=== PATIENT | male | born 1955 | race Native Hawaiian/Other Pacific Islander ===

== ENCOUNTER → 2021-04-21 | Outpatient (CLI) | payer SELFPAY ==
[2021-04-21 18:00] LABS: BASOPHILS ABSOLUTE AUTO 0.05 K/mm3 (0.00-0.23); BASOPHILS PERCENT AUTO 1 % (0-2); EOSINOPHILS PERCENT AUTO 2 % (0-6); Hematocrit 44.6 % (37.0-53.0); Hemoglobin 14.8 g/dL (13.5-17.5); IMMATURE GRAN ABSOLUTE AUTO 0.02 K/mm3 (0.00-0.10); IMMATURE GRAN PERCENT AUTO 0 % (0-1); LYMPHOCYTES ABSOLUTE AUTO 1.84 K/mm3 (0.84-5.20); LYMPHOCYTES PERCENT AUTO 20 % (21-46); MONOCYTES ABSOLUTE AUTO 0.73 K/mm3 (0.16-1.47); MONOCYTES PERCENT AUTO 8 % (4-13); Mean Corpuscular HGB 27.8 pg (26.0-34.0); Mean Corpuscular HGB Conc 33.2 g/dL (31.5-36.5); Mean Corpuscular Volume 84 fL (80-100); Mean Platelet Volume 11.1 fL (9.1-12.4); NEUTROPHILS ABSOLUTE AUTO 6.33 K/mm3 (1.96-9.15); NEUTROPHILS PERCENT AUTO 69 % (41-73); Platelet Count 244 K/mm3 (150-400); RDW Coefficient Variation 12.7 % (11.7-14.2); RDW Standard Deviation 38.5 fL (35.1-46.3); Red Blood Cell Count 5.32 M/mm3 (4.30-5.90); White Blood Cell Count 9.17 K/mm3 (4.00-11.30)
[2021-04-21 18:32] LABS: Free Thyroxine 1.02 ng/dL (0.70-1.60)
[2021-04-21 18:46] LABS: LDL/HDL RATIO 1.7
[2021-04-21 18:47] LABS: Alanine Aminotransfer (ALT/SGP 39 U/L (12-78); Albumin, Blood 3.9 g/dL (3.4-5.0); Albumin/Globulin Ratio 1.2 (0.8-1.8); Alk Phos 68 U/L (50-136); Anion Gap 7 mmol/L (6-16); Aspartate Aminotrans (AST/SGOT 16 U/L (12-37); Bilirubin, Total 0.7 mg/dL (0.1-1.0); Blood Urea Nitrogen 26 mg/dL (8-24); Bun/Creatinine Ratio 24.8 (12.0-20.0); CHOL/HDL RATIO 3.2; CO2, Blood 23 mmol/L (21-32); Calcium, Blood 9.8 mg/dL (8.5-10.1); Chloride, Blood 108 mmol/L (98-108); Cholesterol 158 mg/dL (50-200); Creatinine, Blood 1.05 mg/dL (0.60-1.20); Globulin, Blood 3.2 g/dL (2.2-4.0); Glomerular Filtration Rate >60 (60-); Glucose, Blood 136 mg/dL (70-99); HDL Cholesterol 50 mg/dL (>39); Low Density Lipoprotein Chol 83 mg/dL (0-110); Potassium, Blood 4.3 mmol/L (3.5-5.5); Sodium, Blood 138 mmol/L (136-145); Total Protein, Blood 7.1 g/dL (6.4-8.2); Triglycerides 123 mg/dL (30-160); Very Low Density Lipoprot Chol 24 mg/dL (6-32)
== END | disposition home or self-care (01) ==
LOC: LAB SHORT 16:32
PROVIDERS: Nurse Practitioner Family
DX: I10 Essential (primary) hypertension (principal); E78.5 Hyperlipidemia, unspecified; R73.03 Prediabetes
CPT/HCPCS: 80053; 80061; 83036; 84439; 84443; 85025

== ENCOUNTER 2021-10-23 09:16 | Day surgery (SDC) | payer MEDICARE, OTHER ==
[~2021-10-23] VITALS: Ht 180.3 cm; Wt 105.1 kg
[2021-10-23] MEDS ORDERED: METF500 (09:34)
[2021-10-23] MEDS ORDERED: OLME5TAB PO (09:35)
[2021-10-23] MEDS ORDERED: FISH OIL 1,2001 EAC7 PO (09:36)
[2021-10-23] MEDS ORDERED: ATOR40TA PO (09:36)
--- NOTE | 2021-10-23 09:45 | NUR ---
10/23/21 0945 Yessenia Crawford TETRA- 0933 [facility]- 0935
== END 2021-10-23 10:58 | disposition home or self-care (01) ==
LOC: ORSCSDS 09:16
PROVIDERS: Ophthalmology
PROC: 08RJ3JZ Replacement of Right Lens with Synthetic Substitute, Percutaneous Approach (ICD-10-PCS; principal; 2021-10-23 10:30)
DX: H25.13 Age-related nuclear cataract, bilateral (principal); I10 Essential (primary) hypertension; E11.9 Type 2 diabetes mellitus without complications; K21.9 Gastro-esophageal reflux disease without esophagitis; Z79.84 Long term (current) use of oral hypoglycemic drugs; Z79.899 Other long term (current) drug therapy
CPT/HCPCS: 82947; J2001; J2250; J3010; J3301; J7040; V2632

== ENCOUNTER → 2023-02-01 | Outpatient (CLI) | payer MEDICARE ==
[~2023-02-01] MED LIST: ATOR40TA PO; FISH OIL 1,2001 EAC7 PO; METF500; OLME5TAB PO
[2023-02-01 09:21] LABS: BASOPHILS ABSOLUTE AUTO 0.03 K/mm3 (0.00-0.23); BASOPHILS PERCENT AUTO 0 % (0-2); EOSINOPHILS ABSOLUTE AUTO 0.04 K/mm3 (0.00-0.68); EOSINOPHILS PERCENT AUTO 0 % (0-6); Hematocrit 43.3 % (37.0-53.0); Hemoglobin 14.7 g/dL (13.5-17.5); IMMATURE GRAN ABSOLUTE AUTO 0.08 K/mm3 (0.00-0.10); IMMATURE GRAN PERCENT AUTO 1 % (0-1); LYMPHOCYTES ABSOLUTE AUTO 0.87 K/mm3 (0.84-5.20); LYMPHOCYTES PERCENT AUTO 6 % (21-46); MONOCYTES ABSOLUTE AUTO 0.68 K/mm3 (0.16-1.47); MONOCYTES PERCENT AUTO 5 % (4-13); Mean Corpuscular HGB 28.6 pg (26.0-34.0); Mean Corpuscular HGB Conc 33.9 g/dL (31.5-36.5); Mean Corpuscular Volume 84 fL (80-100); Mean Platelet Volume 10.9 fL (9.1-12.4); NEUTROPHILS PERCENT AUTO 88 % (41-73); Platelet Count 217 K/mm3 (150-400); RDW Coefficient Variation 13.1 % (11.7-14.2); RDW Standard Deviation 39.7 fL (35.1-46.3); Red Blood Cell Count 5.14 M/mm3 (4.30-5.90)
[2023-02-01 09:30] LABS: Albumin/Globulin Ratio 1.3 (0.8-1.8); Bilirubin, Total 0.8 mg/dL (0.1-1.0); Bun/Creatinine Ratio 19.9 (12.0-20.0); Calcium, Blood 10.2 mg/dL (8.5-10.1); Creatinine, Blood 1.66 mg/dL (0.60-1.20); Globulin, Blood 3.2 g/dL (2.2-4.0); Potassium, Blood 4.6 mmol/L (3.5-5.5); Total Protein, Blood 7.2 g/dL (6.4-8.2); Uric Acid, Blood 8.9 mg/dL (3.5-7.2)
== END ==
LOC: LAB 09:17 → LAB SHORT 09:17
PROVIDERS: Physician Assistant Medical
DX: M25.571 Pain in right ankle and joints of right foot (principal)
CPT/HCPCS: 80053; 84550; 85025

== ENCOUNTER 2023-06-23 14:45 | Day surgery (SDC) | payer MEDICARE, OTHER ==
[~2023-06-23] VITALS: Ht 180.3 cm; Wt 105.3 kg
[~2023-06-23 14:45] MED LIST changes: +PANT40 PO
--- NOTE | 2023-06-23 15:09 | NUR ---
06/23/23 1509 Ivy Cornejo AT 1505 [facility] AT 1506
[2023-06-23 16:23] VITALS: BP 127/73
--- NOTE | 2023-06-23 16:25 | NUR ---
06/23/23 1625 Annabel Marshall IV DC'D, CATH INTACT. PT TOLERATED WELL. GAUZE/COBAN IN PLACE.
== END 2023-06-23 16:29 | disposition home or self-care (01) ==
LOC: ORSCSDS 14:45
PROVIDERS: Ophthalmology
PROC: 08RK3JZ Replacement of Left Lens with Synthetic Substitute, Percutaneous Approach (ICD-10-PCS; principal; 2023-06-23 16:00)
DX: E11.36 Type 2 diabetes mellitus with diabetic cataract (principal); H25.12 Age-related nuclear cataract, left eye; Z96.1 Presence of intraocular lens; I10 Essential (primary) hypertension; E78.5 Hyperlipidemia, unspecified; K21.9 Gastro-esophageal reflux disease without esophagitis; Z79.84 Long term (current) use of oral hypoglycemic drugs; Z79.899 Other long term (current) drug therapy
CPT/HCPCS: 82947; J2250; J3010; J3301; J7040; V2632

== ENCOUNTER 2023-09-28 08:33 | Day surgery (SDC) | payer MEDICARE, OTHER ==
[~2023-09-28] VITALS: Ht 180.3 cm; Wt 104.0 kg
[2023-09-28] VITALS (24 sets, daily range): BP systolic 83–145; BP diastolic 37–84
[~2023-09-28 08:33] MED LIST changes: +Acetaminophen 500 MG Tab PO SCH; +CeFAZolin Sodium 2,000 MG in NS 100 ML IV SCH; +Chlorhexidine Mouth Care 15 ML UDC MT SCH; +Lactated Ringer's 1,000 ML IV SCH; -METF500; +METF500 PO; +NAPR500 PO; +OxyCODONE HCL 10 MG TABCR PO SCH
[2023-09-28] MEDS ORDERED: Ropivacaine 0.5% HCl/Pf 67.75 MG,EPINEPHrine HCL 0.25 MG,Ketorolac Tromethamine 15 MG,C... INFIL SCH (09:35)
[2023-09-28] MEDS ORDERED: TRANEXAMIC ACID IV SCH (09:35)
[2023-09-28] MEDS ORDERED: NS IV SCH (09:35)
[2023-09-28] MEDS ORDERED: propofoL 20 ML IV ONE (11:57)
[2023-09-28] MEDS ORDERED: Lactated Ringer's 1,000 ML IV SCH (12:25)
[2023-09-28] MEDS ORDERED: Magnesium Hydroxide Conc 10 ML UDC PO PRN (12:25)
[2023-09-28] MEDS ORDERED: Metoclopramide HCl 5MG / ML 2ML Vial IV PRN (12:30)
[2023-09-28] MEDS ORDERED: OxyCODONE HCL 5 MG TAB PO PRN ×2 (12:30)
[2023-09-28] MEDS ORDERED: Ondansetron HCl 2 MG / ML 2ML Vial IV PRN (12:30)
[2023-09-28] MEDS ORDERED: Prochlorperazine Edisylate 10 mg Vial IV PRN (12:30)
[2023-09-28] MEDS ORDERED: Promethazine HCl 25 MG Tab PO PRN (12:35)
[2023-09-28] MEDS ORDERED: DiphenhydrAMINE HCL 25 MG Cap PO PRN (12:35)
[2023-09-28] MEDS ORDERED: Bisacodyl 10 MG Supp PR PRN (12:35)
[2023-09-28] MEDS ORDERED: HYDROmorphone HCl/Pf 1MG SYR IV PRN (12:35)
[2023-09-28] MEDS ORDERED: propofoL 100 ML IV ONE (12:48)
[2023-09-28] MEDS ORDERED: Midazolam HCl 1MG / ML 2ML Vial ONE (12:49)
[2023-09-28] MEDS ORDERED: Dexamethasone Sod Phos 10 MG/ML 1ML VIAL ONE (13:24)
[2023-09-28] MEDS ORDERED: Ondansetron HCl 2 MG / ML 2ML Vial ONE (13:24)
[2023-09-28] MEDS ORDERED: Phenylephrine HCl 100 MCG/ML-NS 10MLSYR (1MG/10ML) ONE (13:44)
[2023-09-28] MEDS ORDERED: EpiNEPhrine 1 MG/1 ML 1ML Vial ONE (14:02)
[2023-09-28] MEDS ORDERED: ePHEDrine Sulfate 50 MG/ML 1ML Injection ONE (14:02)
[2023-09-28] MEDS ORDERED: Acetaminophen 500 MG Tab PO SCH (16:00)
[2023-09-28] MEDS ORDERED: Lactated Ringer's 1,000 ML IV ONE (16:18)
[2023-09-28] MEDS ORDERED: Insulin Regular 100 UNIT/ML 10ML Vial SC SCH (16:30)
[2023-09-28] MEDS ORDERED: MetFORMIN HCl 500 mg PO SCH (17:00)
--- NOTE | 2023-09-28 17:59 | NUR ---
SHIFT SUMMARY S/P R YEIMY, AQUACEL CDI, TEDS/SCDS/POLAR ASHLEIGH ON. A&OX4, VSS/RA, [place] PO, AWAITING POST OP VOID, BEDREST/SPINAL - MILD N&T IN BLE'S, WIGGLES TOES, PAIN MANAGED, IVF @ 70 MLS/HR/IV LAC, PLAN TO STAY TONIGHT/WORK WITH THERAPY IN AM THEN DC. WILL REPORT TO ONCOMING NOC LATRELL.
[2023-09-28] MEDS ORDERED: Ketorolac Tromethamine 15mg Vial IV SCH (18:00)
[2023-09-28] MEDS ORDERED: DOCU100 PO (18:28)
[2023-09-28] MEDS ORDERED: Aspir 8181 MG PO (18:28)
[2023-09-28] MEDS ORDERED: Percocet 5-3251 EACH PO (18:28)
[2023-09-28] MEDS ORDERED: Docusate Sodium 100 MG Cap PO SCH (21:00)
[2023-09-28] MEDS ORDERED: CeFAZolin Sodium 2,000 MG in NS 100 ML IV SCH (21:00)
[2023-09-29] VITALS (9 sets, daily range): BP systolic 89–144; BP diastolic 47–75
[2023-09-29] MEDS ORDERED: Calcium Carbonate 500 MG Tab Chew PO PRN (04:05)
[2023-09-29 04:11] LABS: BASOPHILS ABSOLUTE AUTO 0.02 K/mm3 (0.00-0.23); BASOPHILS PERCENT AUTO 0 % (0-2); EOSINOPHILS PERCENT AUTO 0 % (0-6); Hematocrit 31.8 % (37.0-53.0); Hemoglobin 10.9 g/dL (13.5-17.5); IMMATURE GRAN ABSOLUTE AUTO 0.11 K/mm3 (0.00-0.10); IMMATURE GRAN PERCENT AUTO 1 % (0-1); LYMPHOCYTES ABSOLUTE AUTO 1.13 K/mm3 (0.84-5.20); LYMPHOCYTES PERCENT AUTO 6 % (21-46); MONOCYTES PERCENT AUTO 7 % (4-13); Mean Corpuscular HGB 28.8 pg (26.0-34.0); Mean Corpuscular HGB Conc 34.3 g/dL (31.5-36.5); Mean Corpuscular Volume 84 fL (80-100); NEUTROPHILS ABSOLUTE AUTO 15.96 K/mm3 (1.96-9.15); NEUTROPHILS PERCENT AUTO 87 % (41-73); Platelet Count 260 K/mm3 (150-400); RDW Coefficient Variation 12.8 % (11.7-14.2); RDW Standard Deviation 38.7 fL (35.1-46.3); Red Blood Cell Count 3.78 M/mm3 (4.30-5.90); White Blood Cell Count 18.42 K/mm3 (4.00-11.30)
[2023-09-29 04:32] LABS: Bun/Creatinine Ratio 26.2 (12.0-20.0); Calcium, Blood 9.2 mg/dL (8.5-10.1); Creatinine, Blood 1.07 mg/dL (0.60-1.20)
--- NOTE | 2023-09-29 05:59 | NUR ---
SHIFT SUMMARY POD1 R YEIMY. DRESSING IS C/D/I. SENSATION AND CIRCULATION REMAINS INTACT IN RLE. VSS, HYPOTENTION NOTED THIS AM. PT BECAME DIAPHORETIC, EXPERIENCED SOB, NAUSEA, AND RADIATING JAW PAIN. EKG PERFORMED W/ NO ACUTE FINDINGS COMPARED TO PREVIOUS EKG. REACHED OUT TO SURGEON TO UPDATE HIM ON THIS SITUATION, AWAITING FURTHER ORDERS AT THIS TIME. EARLIER IN THE NIGHT PT C/O DIZZINESS AND NAUSEA WHILE AMBULATING, WHEN VITALS WERE CHECKED, NO ACUTE FINDINGS NOTED. PT SLEPT ON AND OFF T/O THE NIGHT. AMBULATED TO THE BATHROOM W/ MIN ASSIST. MEDICATED FOR PAIN WITH PRN'S AND SCHEDULED MEDICATION. TOLLERATING PO INTAKE. PLAN FOR PT TO WORK WITH PHYSICAL THERAPY TODAY.
[2023-09-29] MEDS ORDERED: Losartan Potassium 25 MG Tab PO SCH (09:00)
[2023-09-29] MEDS ORDERED: Aspirin 81 MG Chew PO SCH (09:00)
--- NOTE | 2023-09-29 12:38 | NUR ---
DISCHARGE POD 1 R YEIMY. ORTHOSTATIC VS TAKEN, STABLE; PT REPORTS NO DIZZINESS/NAUSEA. AQUACEL C/D/I. PHYSCIAL THERAPY WORKED c PATIENT BEFORE DISCHARGE, PT TOLERATED AMBULATION WELL. TOLERATING REGULAR DIET. TOILETING INDEPENDENTLY & DRESSED c MINIMAL AID. PT REPORTS PAIN TOLERABLE, MEDICATED PER EMAR. DISCHARGE INSTRUCTIONS GIVEN. D/C VIA WHEELCHAIR TO POV c S/O DRIVING. PERSONAL BELONGINGS c PATIENT.
== END 2023-09-29 13:08 | disposition home or self-care (01) ==
LOC: ORSCMMR 08:33 → ORD 11:00 → ORSCMMR 11:00 → SURS 16:04 → ORSCMMR 22:48 → SURS 22:48 → ORSCMMR 09-29 13:08
PROVIDERS: Orthopaedic Surgery
PROC: 0SR90JZ Replacement of Right Hip Joint with Synthetic Substitute, Open Approach (ICD-10-PCS; principal; 2023-09-28 10:30)
DX: M16.11 Unilateral primary osteoarthritis, right hip (principal); E78.5 Hyperlipidemia, unspecified; G47.33 Obstructive sleep apnea (adult) (pediatric); E11.9 Type 2 diabetes mellitus without complications; Z79.84 Long term (current) use of oral hypoglycemic drugs; Z79.899 Other long term (current) drug therapy
CPT/HCPCS: 36415; 72170; 80048; 82947; 84484; 85025; 97110; 97116; 97162; 97530; A9270; C1776; J0171; J0690; J0735; J1100; J1885; J2250; J2371; J2405; J2704; J2795; J7120